=== PATIENT | female | born 1955 | race Caucasian/White ===

== ENCOUNTER → 2016-12-17 | Day surgery (SDC) | payer OTHER | END | disposition home or self-care (01) | LOC: SDCH 09:59 | DX: Z12.11 Encounter for screening for malignant neoplasm of colon (principal); D12.2 Benign neoplasm of ascending colon; D12.3 Benign neoplasm of transverse colon; K57.30 Diverticulosis of large intestine without perforation or abscess without bleeding; I10 Essential (primary) hypertension; G47.33 Obstructive sleep apnea (adult) (pediatric); Z79.82 Long term (current) use of aspirin; Z79.899 Other long term (current) drug therapy; Z98.51 Tubal ligation status; M19.90 Unspecified osteoarthritis, unspecified site | CPT/HCPCS: J2704 ==